=== PATIENT | male | born 1995 | race Caucasian/White ===

== ENCOUNTER → 2018-05-03 | Outpatient (CLI) | payer BC ==
[~2018-05-03] MED LIST: ZITHROMAX Z PA250 MG PO
== END ==
LOC: ZCOL.LAB 14:11
DX: R19.7 Diarrhea, unspecified (principal)

== ENCOUNTER → 2019-12-20 | Outpatient (CLI) | payer BC, OTHER | LOC: COL.RAD 08:45 | DX: M25.551 Pain in right hip (principal) | CPT/HCPCS: A9585; Q9967 ==

== ENCOUNTER → 2019-12-23 | Outpatient (CLI) | payer BC, OTHER | LOC: COL.RAD 08:52 | DX: M25.511 Pain in right shoulder (principal) | CPT/HCPCS: A9585; Q9967 ==